=== PATIENT | male | born 1990 | race African-American/Black ===

== ENCOUNTER 2019-12-25 06:33 | Emergency (ER) | payer SELFPAY ==
[2019-12-25] MEDS ORDERED: LIDOCAINE 1% MPF 30 ML VIAL ONE (07:07)
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
[2019-12-25 09:21] VITALS: BP 135/85; TEMP 98.2; O2SAT 99
== END 2019-12-25 09:07 | disposition home or self-care (01) ==
LOC: ER 06:33
PROC: 0CQ1XZZ Repair Lower Lip, External Approach (ICD-10-PCS; principal; 2019-12-25)
PROC: 0CQ0XZZ Repair Upper Lip, External Approach (ICD-10-PCS; 2019-12-25)
DX: S02.5XXA Fracture of tooth (traumatic), initial encounter for closed fracture (principal); S03.2XXA Dislocation of tooth, initial encounter; V09.9XXA Pedestrian injured in unspecified transport accident, initial encounter; F17.210 Nicotine dependence, cigarettes, uncomplicated
CPT/HCPCS: 70450; 70486; 72125; 76377; 99284; G0390